=== PATIENT | female | born 1950 | race Caucasian/White ===

== ENCOUNTER 2022-10-05 14:44 | Emergency (ER) | payer MEDICARE, OTHER ==
[2022-10-05] MEDS ORDERED: Take Home: Amoxicillin 500 MG Cap, 2 Cap Pack PO ONE (14:48)
[2022-10-05] MEDS ORDERED: Benzocaine 20% Oral Spray 59.2 ML Canister MUCMEM ONE (14:48)
[2022-10-05 14:52] VITALS: BP 136/75; PULSE 100
[2022-10-05] MEDS ORDERED: Benzocaine 20% Topical Spray UD MUCMEM ONE (15:26)
== END 2022-10-05 15:27 | disposition home or self-care (01) ==
LOC: CC.ED 14:44
DX: K04.7 Periapical abscess without sinus (principal); Z88.1 Allergy status to other antibiotic agents; Z88.2 Allergy status to sulfonamides
CPT/HCPCS: 99282; 99283; A9270-GY